=== PATIENT | male | born 1965 | race Caucasian/White ===

== ENCOUNTER 2025-05-13 09:16 | Emergency (ER) | payer SELFPAY ==
[2025-05-13] MEDS ORDERED: Lidocaine 1% PF 5 ML VIAL ONE (10:11)
[2025-05-13] MEDS ORDERED: Boostrix 0.5 ML (Tdap) VIAL (>/=7 yrs of age) ONE (10:59)
[2025-05-13] MEDS ORDERED: Bacitracin 1 PK ONE (11:01)
== END 2025-05-13 11:35 | disposition home or self-care (01) ==
LOC: ERS 09:16
DX: S01.111A Laceration without foreign body of right eyelid and periocular area, initial encounter (principal); I10 Essential (primary) hypertension; Z23 Encounter for immunization; Z87.891 Personal history of nicotine dependence; W06.XXXA Fall from bed, initial encounter
CPT/HCPCS: 12011; 70450; 72125; 90471; 90715